=== PATIENT | female | born 2000 | race African-American/Black ===

== ENCOUNTER 2021-04-27 10:30 | Inpatient (IN) ==
[2021-04-27] MEDS ORDERED: BUTORPHANOL 2 MG/ML VIAL IV PRN (10:38)
[2021-04-27] MEDS ORDERED: ONDANSETRON 4 MG/2 ML VIAL IV PRN (10:38)
[2021-04-27] MEDS ORDERED: MEPERIDINE 50 MG/1 ML VIAL IV PRN (10:38)
[2021-04-27] MEDS ORDERED: OXYTOCIN/LR 20 UNIT/1,000 ML BAG IV SCH (11:00)
[2021-04-27 11:04] LABS: Basophils # 0.1 10*3/uL (0.0-0.2); Basophils % 0.4 % (0.0-0.8); Eosinophils # 0.1 10*3/uL (0.0-0.87); Eosinophils % 0.7 % (0.00-10.9); Hematocrit 34.5 VOL% (35.7-47.0); Hemoglobin 11.1 GM/DL (12.0-16.0); Immature Granulocytes % 1.6 %; Immature Granulocytes Absolute 0.21 #; Lymphocytes # 1.3 10*3/uL (1.4-4.0); Lymphocytes % 9.7 % (21.3-54.2); Mean Corpuscular HGB Conc 32.2 GM/DL (32-36); Mean Platelet Volume 9.4 FL (9.6-12.0); Monocytes % 8.5 % (1.7-12.7); Neutrophils % 79.1 % (38.7-73.9); Platelet Count 403 T/CUMM (130-400); Red Blood Count 3.67 MC/CUMM (3.8-5.5); Red Cell Distribution Width 15.3 % (9.3-17.3); White Blood Count 13.5 T/CUMM (4-12)
[2021-04-27] MEDS ORDERED: AMPICILLIN INJ 2,000 MG in SODIUM CHLORIDE 0.9% 100 ML IV ONE (11:08)
[2021-04-27] MEDS: LACTATED RINGERS 1,000 ML IV SCH ×2 (11:29→14:16)
[2021-04-27 11:31] LABS: Alanine Aminotransferase 15 U/L (13-56); Albumin 2.6 G/DL (3.4-5.0); Alkaline Phosphatase 156 U/L (45-117); Aspartate Amino Transferase 18 U/L (0-37); Bilirubin,Total < 0.39 MG/DL (0.20-1.00); Blood Urea Nitrogen 9 MG/DL (7-18); Calcium 9.1 MG/DL (8.5-10.1); Carbon Dioxide 21 MMOL/L (21-32); Estimated Glom Filtration Rate 171 ML/MIN; Glucose 78 MG/DL (74-106); Osmolality,Calculated 270.8 MOS/KG (273-304); Sodium 137 MMOL/L (136-145); Total Protein 7.4 G/DL (6.4-8.2)
[2021-04-27] MEDS ORDERED: FAMOTIDINE 20 MG/2 ML VIAL IV ONE (13:40)
[2021-04-27] MEDS ORDERED: CITRIC ACID/SODIUM CITRATE 30 ML UDCUP PO ONE (13:40)
[2021-04-27] MEDS ORDERED: NALOXONE 0.4 MG/ML VIAL IV PRN (13:40)
[2021-04-27] MEDS ORDERED: ePHEDrine 50 MG/ML VIAL IV PRN (13:40)
[2021-04-27] MEDS ORDERED: PROMETHAZINE 25 MG/1 ML VIAL IM PRN (13:40)
[2021-04-27] MEDS ORDERED: diphenhydrAMINE 50 MG/1 ML VIAL IV PRN (13:40)
[2021-04-27] MEDS ORDERED: fentaNYL 2 MCG/ROPIV 0.2% EPID 100 ML EPIDURAL SCH (14:00)
[2021-04-27] MEDS ORDERED: AMPICILLIN INJ 1,000 MG in SODIUM CHLORIDE 0.9% 100 ML IV SCH (15:30)
[2021-04-27] MEDS ORDERED: CARBOPROST TROMETHAMINE 250 MCG/ML AMP IM ONE (17:51)
[2021-04-27] MEDS ORDERED: miSOPROStoL 200 MCG TABLET ONE (17:51)
[2021-04-27 19:07] LABS: Cord Arterial Blood HCO3 19.1 MMOL/L
[2021-04-27 19:09] LABS: Cord Venous Blood HCO3 19.9 MMOL/L; Cord Venous Blood PCO2 40.6 MMHG
[2021-04-27 20:24] LABS: Bilirubin,Urine Negative (Negative); Blood, Urine Negative (Negative); Glucose,Urine (UA) Negative (Negative); Ketones,Urine 5 mg/dL (Negative); Mucus,Urine Occasional /LPF (Occasional); Nitrite,Urine Negative (Negative); Protein,Urine Negative; RBC,Urine 3 /HPF (0-4); Squamous Epithelial Cell,Urine Occasional /HPF (0-10); Urine Appearance CLEAR (Clear); Urine Color Yellow (Yellow); Urine Urobilinogen < 2.0 EU/DL (<2.0)
[2021-04-27] MEDS ORDERED: oxyCODONE/ACETAMINOPHEN 5-325 MG TABLET PO ONE (21:05)
[2021-04-27] MEDS ORDERED: IBUPROFEN 800 MG TABLET PO ONE (21:06)
[2021-04-28] MEDS ORDERED: LANOLIN 50% CREAM 0.3 OZ TUBE TOP PRN (01:23)
[2021-04-28] MEDS ORDERED: WITCH HAZEL PADS 100/JAR TOP PRN (01:23)
[2021-04-28] MEDS ORDERED: BENZOCAINE 20%/MENTHOL 0.5% SPRAY 56 GM CAN TOP PRN (01:23)
[2021-04-28] MEDS ORDERED: MEASLES/MUMPS/RUBELLA VACCINE 0.5 ML VIAL SUBCUT ONE (01:23)
[2021-04-28] MEDS ORDERED: DIPH/TET/ACEL PERT BOOSTER VACCINE 0.5 ML VIAL IM ONE (01:23)
[2021-04-28] MEDS ORDERED: HYDROCORTISONE 2.5% RECTAL CREAM 30 GM TUBE TOP PRN (01:23)
[2021-04-28] MEDS ORDERED: RHO(D) IMMUNE GLOBULIN 300 MCG SYRINGE IM ONE (01:23)
[2021-04-28] MEDS ORDERED: oxyCODONE/ACETAMINOPHEN 5-325 MG TABLET PO PRN ×2 (01:23)
[2021-04-28] MEDS ORDERED: OXYTOCIN/LR 20 UNIT/1,000 ML BAG IV ONE (01:23)
[2021-04-28] MEDS ORDERED: ACETAMINOPHEN 325 MG TABLET PO PRN (01:23)
[2021-04-28] MEDS ORDERED: BISACODYL 10 MG SUPP RECTAL PRN (01:23)
[2021-04-28] MEDS ORDERED: IBUPROFEN 800 MG TABLET PO PRN (01:23)
[2021-04-28 07:03] LABS: Basophils % 0.2 % (0.0-0.8); Eosinophils % 0.1 % (0.00-10.9); Hemoglobin 10.4 GM/DL (12.0-16.0); Immature Granulocytes % 1.1 %; Immature Granulocytes Absolute 0.25 #; Lymphocytes # 1.4 10*3/uL (1.4-4.0); Lymphocytes % 6.3 % (21.3-54.2); Mean Corpuscular HGB Conc 31.5 GM/DL (32-36); Mean Corpuscular Volume 96.8 FL (87-102); Mean Platelet Volume 10.5 FL (9.6-12.0); Monocytes % 8.4 % (1.7-12.7); Neutrophils % 83.9 % (38.7-73.9); Platelet Count 369 T/CUMM (130-400); Red Blood Count 3.41 MC/CUMM (3.8-5.5); Red Cell Distribution Width 15.5 % (9.3-17.3); White Blood Count 22.3 T/CUMM (4-12)
[2021-04-28 07:27] LABS: Band Neutrophils 4 % (0-10); Eosinophils 1 % (0-10); Hypochromia 1+; Lymphocytes 3 % (20-55); Microcytosis Slight; Segmented Neutrophils 85 % (50-85); Total Cells Counted 100
[2021-04-28] MEDS: DOCUSATE SODIUM 100 MG CAPSULE PO SCH ×2 (08:07→21:26)
[2021-04-29 07:19] VITALS: BP 105/49
[2021-04-29] MEDS: DOCUSATE SODIUM 100 MG CAPSULE PO SCH (09:34)
== END 2021-04-29 11:50 | disposition home or self-care (01) | DRG 560 ==
LOC: N.LD 10:30 → N.OB 04-28 01:00
PROVIDERS: ADMIT Obstetrics & Gynecology; ATTEND Obstetrics & Gynecology